=== PATIENT | female | born 1975 | race Caucasian/White ===

== ENCOUNTER 2017-09-27 08:12 | Emergency (ER) | payer BC ==
[2017-09-27 08:18] VITALS: TEMP 98.6
--- NOTE | 2017-09-27 08:28 | CPEKG ---
Heart Rate: 95 RR Interval: 632 P-R Interval: 152 QRSD Interval: 90 QT Interval: 360 QTC Interval: 453 P [place]: 37 QRS [place]: 264 T Wave [place]: 45 EKG Severity - ABNORMAL ECG - EKG Impression: SINUS RHYTHM EKG Impression: LEFT ANTERIOR FASCICULAR BLOCK EKG Impression: NONSPECIFIC T ABNORMALITIES, ANTERIOR LEADS Electronically Signed By: Eduardo Verde 27-Sep-2017 09:00:04
--- NOTE | 2017-09-27 08:54 | EDPHY ---
H & P Stated Complaint: CP WITH DEEP BREATH SINCE YESTERDAY Time Seen by Provider: 09/27/17 08:26 HPI/ROS: CHIEF COMPLAINT: Pleuritic chest pain HISTORY OF PRESENT ILLNESS: The patient presents to the ED with a 1 day history left-sided pleuritic chest pain. The patient denies asymmetric calf pain or swelling. She denies oral contraceptive use. She reports that she believes her mother may have had a history of DVT. The patient takes no regular medications. She denies any history of overuse or trauma. The patient states her pain is moderate in nature. It is not reproducible. The patient denies any recent illness. She has no complaints of abdominal pain, productive cough or fever. REVIEW OF SYSTEMS: A comprehensive 10 point review of systems is otherwise negative aside from elements mentioned in the history of present illness. Source: Patient Exam Limitations: No limitations - Personal History LMP (Females 10-55): Now Current Tetanus/Diphtheria Vaccine: Yes Tetanus Vaccine Date: 2003 - Medical/Surgical History Hx Asthma: No Hx Chronic Respiratory Disease: No Hx Diabetes: No Hx Cardiac Disease: No Hx Renal Disease: No Hx Cirrhosis: No Hx Alcoholism: No Hx HIV/AIDS: No Hx Splenectomy or Spleen Trauma: No Other PMH: DENIES - Social History Smoking Status: Never smoked - Physical Exam Exam: General Appearance: Alert, no distress Eyes: Pupils equal and round no pallor or injection ENT, Mouth: Mucous membranes moist Respiratory: There are no retractions, lungs are clear to auscultation Cardiovascular: Regular rate and rhythm Gastrointestinal: Abdomen is soft and nontender, no masses, bowel sounds normal Neurological: A&O, normal motor function, normal sensory exam, normal cranial nerves Skin: Warm and dry, no rashes Musculoskeletal: Neck is supple nontender Extremities: symmetrical, full range of motion Constitutional: Initial Vital Signs Temperature (C) 37 C 09/27/17 08:15 Heart Rate 92 09/27/17 08:15 Respiratory Rate 16 09/27/17 08:15 Blood Pressure 120/88 H 09/27/17 08:15 O2 Sat (%) 98 09/27/17 08:15 O2 Delivery Mode Room Air Allergies/Adverse Reactions: No Known Allergies Allergy (Verified 09/27/17 08:14) Home Medications: Medication Instructions Recorded NK [No Known Home Meds] 09/27/17 Medical Decision Making - Diagnostics EKG Interpretation: EKG: Complete interpretation has been separately recorded in the [facility] archive. Summary impression: Sinus rhythm, left anterior fascicular block, nonspecific ST T wave changes noted Imaging Results: Imaging Impressions Chest X-Ray 09/27/17 09:42 Impression: No acute findings in the chest. ED Course/Re-evaluation: The patient presents to the ED with complaints of mild left-sided pleuritic pain for the past day. The patient has no risk factors for PE or DVT. She is low risk by Wells criteria. The patient's EKG demonstrates no evidence of ischemic changes. The patient's troponin is normal. The patient's D-dimer is also negative which I feel adequately excludes pulmonary embolism in this patient. The patient was taken for a chest x-ray. The patient received 15 mg of IV Toradol. The patient has been informed that her workup in the emergency department is negative. At this point time I feel it is reasonable to have her take ibuprofen as an outpatient for likely pleurisy. Patient has no risk factors for coronary artery disease. She has been instructed to return to the emergency department for any progressive or worsening symptoms. The patient should follow up with her primary care provider as needed. She is discharged home with customary aftercare instructions and return precautions. Differential Diagnosis: Differential diagnosis considered includes pulmonary embolism, pleurisy, pneumothorax, pericarditis, myocarditis - Data Points Laboratory Results: Laboratory Results 09/27/17 08:25 09/27/17 08:25 09/27/17 09/27/17 09/27/17 08:25 08:25 08:25 WBC RBC Hgb Hct MCV MCH MCHC RDW Plt Count MPV Neut % (Auto) Lymph % (Auto) [place] % (Auto) Eos % (Auto) Baso % (Auto) Nucleat RBC Rel Count Absolute Neuts (auto) Absolute Lymphs (auto) Absolute Monos (auto) Absolute Eos (auto) Absolute Basos (auto) Absolute Nucleated RBC Immature Gran % Immature Gran # D-Dimer 0.32 ug/mLFEU ug/mLFEU (0.00-0.50) Sodium 143 mEq/L mEq/L (134-144) Potassium 4.2 mEq/L mEq/L (3.5-5.2) Chloride 105 mEq/L mEq/L (97-110) Carbon Dioxide 25 mEq/l mEq/l (22-31) Anion Gap 13 mEq/L mEq/L (8-16) BUN 14 mg/dL mg/dL (7-23) Creatinine 0.7 mg/dL mg/dL (0.6-1.0) Estimated GFR > 60 Glucose 94 mg/dL mg/dL (70-100) Calcium 9.8 mg/dL mg/dL (8.5-10.4) Troponin I < 0.012 ng/mL ng/mL (0.000-0.034) Beta HCG, Qual NEGATIVE 09/27/17 08:25 WBC 8.04 10^3/uL 10^3/uL (3.80-9.50) RBC 5.19 10^6/uL 10^6/uL (4.18-5.33) Hgb 15.4 g/dL g/dL (12.6-16.3) Hct 44.1 % % (38.0-47.0) MCV 85.0 fL fL (81.5-99.8) MCH 29.7 pg pg (27.9-34.1) MCHC 34.9 g/dL g/dL (32.4-36.7) RDW 12.4 % % (11.5-15.2) Plt Count 272 10^3/uL 10^3/uL (150-400) MPV 9.6 fL fL (8.7-11.7) Neut % (Auto) 72.2 % % (39.3-74.2) Lymph % (Auto) 19.9 % % (15.0-45.0) [place] % (Auto) 6.1 % % (4.5-13.0) Eos % (Auto) 0.9 % % (0.6-7.6) Baso % (Auto) 0.5 % % (0.3-1.7) Nucleat RBC Rel Count 0.0 % % (0.0-0.2) Absolute Neuts (auto) 5.81 10^3/uL 10^3/uL (1.70-6.50) Absolute Lymphs (auto) 1.60 10^3/uL 10^3/uL (1.00-3.00) Absolute Monos (auto) 0.49 10^3/uL 10^3/uL (0.30-0.80) Absolute Eos (auto) 0.07 10^3/uL 10^3/uL (0.03-0.40) Absolute Basos (auto) 0.04 10^3/uL 10^3/uL (0.02-0.10) Absolute Nucleated RBC 0.00 10^3/uL 10^3/uL (0-0.01) Immature Gran % 0.4 % % (0.0-1.1) Immature Gran # 0.03 10^3/uL 10^3/uL (0.00-0.10) D-Dimer Sodium Potassium Chloride Carbon Dioxide Anion Gap BUN Creatinine Estimated GFR Glucose Calcium Troponin I Beta HCG, Qual Medications Given: Discontinued Medications Ketorolac Tromethamine (Toradol) 15 mg IVP EDNOW ONE Stop: 09/27/17 09:43 Last Admin: 09/27/17 09:54 Dose: 15 mg Departure - Departure Disposition: Home, Routine, Self-Care Clinical Impression: Pleurisy Condition: Good Instructions: Pleurisy (ED) Additional Instructions: 1. Take Ibuprofen or Motrin 600 mg by mouth three times a day. 2. Please return to the ED for markedly worsening symptoms, difficulty breathing or other concerns. 3. Please follow up with your primary care provider for any unimproved symptoms. Referrals: Jeannine Mendoza MD [Primary Care Provider] - As per Instructions
[2017-09-27 08:57] LABS: PLATELET COUNT 272 10^3/uL (150-400)
[2017-09-27 09:02] VITALS: PULSE 82; RESP 18; O2SAT 96
[2017-09-27] MEDS ORDERED: KETOROLAC 30 MG/1 ML SDV IVP ONE (09:42)
[2017-09-27 09:58] VITALS: BP 108/75
== END 2017-09-27 10:22 | disposition home or self-care (01) ==
DX: R09.1 Pleurisy (principal)
CPT/HCPCS: 96374; J1885

== ENCOUNTER → 2017-10-10 | Outpatient (CLI) | payer BC | LOC: BMCIMAGING 07:48 | PROVIDERS: ATTEND Internal Medicine | DX: N85.4 Malposition of uterus (principal); N94.89 Other specified conditions associated with female genital organs and menstrual cycle ==

== ENCOUNTER → 2018-12-26 | Outpatient (CLI) | payer OTHER | LOC: FIMAGING 08:37 | PROVIDERS: ATTEND Obstetrics & Gynecology | DX: Z12.31 Encounter for screening mammogram for malignant neoplasm of breast (principal) ==